=== PATIENT | male | born 1990 | race African-American/Black ===

== ENCOUNTER 2017-03-13 01:44 | Emergency (ER) | payer BC ==
[~2017-03-13] VITALS: Ht 175.3 cm; Wt 87.0 kg
[2017-03-13] MEDS ORDERED: IBUPROFEN 600MG TABLET PO ONE (04:15)
[2017-03-13] MEDS ORDERED: LIDOCAINE HCL 1%/EPI 1:200,000 30 ML VIAL MC ONE (04:15)
[2017-03-13] MEDS ORDERED: BACITRACIN ZINC OINT UDPKT TOP ONE (04:15)
[2017-03-13] MEDS ORDERED: LIDOCAINE HCL 1% 20ML VIAL (Pyxis) INJ INFIL ONE (05:00)
[2017-03-13 06:00] VITALS: BP 118/73
== END 2017-03-13 06:25 | disposition home or self-care (01) ==
LOC: ER 01:44
DX: S61.313A Laceration without foreign body of left middle finger with damage to nail, initial encounter (principal); X58.XXXA Exposure to other specified factors, initial encounter; Y93.89 Activity, other specified; Y92.89 Other specified places as the place of occurrence of the external cause; Y99.8 Other external cause status
CPT/HCPCS: 11750; 73130; 99284; J3490; X7700; Z7610